=== PATIENT | female | born 1985 | race African-American/Black ===

== ENCOUNTER 2018-03-11 07:30 | Day surgery (SDC) | payer BC, OTHER ==
[2018-03-09 12:14] VITALS: BMI 32.5
[2018-03-11] MEDS ORDERED: LIDOCAINE HCL 2% (20ML MULTI-DOSE VIAL) NR ONE (08:22)
[2018-03-11] MEDS ORDERED: BUPIVACAINE HCL/PF 0.5% (5MG/ML) 10 ML VIAL ONE (08:23)
[2018-03-11] MEDS ORDERED: DEXAMETHASONE SOD PHOSPHATE 4 MG/1 ML VIAL ONE (08:24)
[2018-03-11 08:48] VITALS: TEMP 98.3
[2018-03-11] MEDS ORDERED: ONDANSETRON 4 MG/2 ML VIAL IVPUSH PRN ×2 (09:19→10:55)
[2018-03-11] MEDS ORDERED: ACETAMINOPHEN 500 MG TABLET (FP) PO PRN ×2 (09:19→10:55)
[2018-03-11] MEDS ORDERED: LACTATED RINGERS SOLUTION 1,000 ML IV SCH ×2 (09:30→10:55)
[2018-03-11] MEDS ORDERED: PROPOFOL 20 ML ONE ×2 (09:35)
[2018-03-11] MEDS ORDERED: ceFAZolin SODIUM 1 GM VIAL ONE ×2 (09:35→10:04)
[2018-03-11] MEDS ORDERED: MIDAZOLAM HCL 2 MG/2 ML SINGLE DOSE VIAL ONE ×2 (09:36)
--- NOTE | 2018-03-11 10:50 | OP ---
Operative Note - Note: Operative Date: 03/11/18 Pre-Operative Diagnosis: Subungual exostectomy right Operation: subungual exostectomy after nail avulsion Post-Operative Diagnosis: Same as Pre-op Surgeon: Monica Beckman Anesthesia: Local, MAC Operative Report Dictated: Yes
[2018-03-11 15:12] VITALS: BP 122/79; PULSE 92
--- NOTE | 2018-03-12 14:46 | OP ---
DATE OF OPERATION: 03/11/2018 SURGEON: Monica Beckman MD BLASTING WORKER: Stevie Becerra DPM PREPROCEDURE DIAGNOSIS: Right foot dorsal exostosis at right hallux. POSTPROCEDURE DIAGNOSIS: Right foot dorsal exostosis at right hallux. PROCEDURE: Total nail avulsion of the right hallux and exostectomy of dorsal exostosis at distal phalanx of the right hallux. PATHOLOGY: Right foot bone and soft tissue and hallucal nail fungal pathology. ANESTHESIA: MAC and local. ESTIMATED BLOOD LOSS: Minimal. HEMOSTASIS: Right pneumatic ankle tourniquet at 250 mmHg. INJECTIONS: A 1:1 mixture of 1% lidocaine plain and 0.5% Marcaine plain, 10 mL, preoperative; 9 mL of a mixture of dexamethasone and 0.5% Marcaine plain postoperative. PROCEDURE: The patient was both verbally and visually identified in the preoperative holding area. Informed consent was obtained and placed in the chart. All risks, benefits and complications were explained to the patient to her satisfaction. The patient was then brought to the operating room and placed on the operating table in the supine position. After adequate IV sedation, a local infiltration block utilizing 10 mL of a 1:1 mixture of 1% lidocaine plain and 0.5% Marcaine plain was administered to the right foot. At this time total right hallucal nail avulsion was performed utilizing spatula, [place] and hemostat. The right hallucal nail was passed from the operative field, then sent to Pathology. At this time the right foot was then prepped and draped in the usual aseptic fashion. The pneumatic right ankle tourniquet was inflated before the right hallucal nail was removed. Attention was then directed to the right hallux where the hallucal nail was removed. Nail bed was cleaned out with Betadine solutions and all subungual debris was removed. At this time the longitudinal incision was made at the dorsum aspect of the distal tip of the distal phalanx about at the mid foot portion about 2 cm in length of the right foot. The incision was deepened all the way to right distal phalanx and then utilizing sharp and blunt dissection the tip of the distal phalanx was exposed and utilizing a sagittal bone saw the exostosis at the tip of the distal phalanx especially medial portion of the distal phalanx was transected and removed from the operative field and sent to Pathology. Area was smoothened out with a rotating bur, then irrigated with normal saline solution and then incision was reapproximated with 3-0 nylon in simple suture fashion. Incision site then dressed with Betadine-soaked Adaptic and Telfa gauze and 4 x 4 gauze and Kerlix and Chaim bandage. Postoperative injection was given at this time. Then pneumatic right ankle tourniquet was deflated. Hyperemic response was noted of the digit of 1 through 5 of right foot. Patient tolerated the procedure and anesthesia well and left the operating room to the recovery room in good condition with the vital signs stable. Capillary filling time was less than 3 seconds at the right foot. MARLENY Dozier/[id number]
--- NOTE | 2018-03-16 09:09 | PATH ---
Surgical Pathology Report Patient Name: GINGER DIAZ [facility]. Rec. #: [id number] /Age/Gender: 1985 (Age: 32) / F Account: [id number] Location: [facility] SURGICAL Taken: 03/11/2018 Received: 03/11/2018 Reported: 03/16/2018 Physicians: Monica Beckman DPM Specimen(s) Received A: RIGHT TOENAIL FOR FUNGUS B: BONE SPUR RIGHT FOOT Clinical History Osteophyte Final Diagnosis A. TOE NAIL, RIGHT, EXCISION: ONYCHOMYCOSIS. PAS FUNGAL STAIN HIGHLIGHTS RARE FUNGAL FORMS. B. BONE, FOOT, RIGHT, SPUR, EXCISION: BONE WITH DEGENERATIVE CHANGES AND DENSE FIBROCONNECTIVE TISSUE. Electronically Signed Kimberley Horvath M.D. Gross Description A. Received in formalin labeled "fungus toenail right," are 2 paz-brown portions of unguis measuring 1.9 x 0.3 x 0.1 cm and 1.8 x 1.8 x 0.3 cm. [employer] sections are submitted in one cassette. B. Received in formalin labeled "bone spur right foot," is a 0.7 x 0.5 x 0.1 cm paz portion of bone. The specimen is bisected and entirely submitted in one cassette, following decalcification. /03/11/201803/11/2018
== END 2018-03-11 14:15 | disposition home or self-care (01) ==
LOC: JASU-SURG 07:30
PROVIDERS: ATTEND Podiatrist Foot Surgery
PROC: 0HDRXZZ Extraction of Toe Nail, External Approach (ICD-10-PCS; 2018-03-11)
PROC: 0QBQ0ZZ Excision of Right Toe Phalanx, Open Approach (ICD-10-PCS; principal; 2018-03-11 09:00)
DX: M25.70 Osteophyte, unspecified joint (principal)
CPT/HCPCS: 73630-TC-RT-FY; 84703; 94760

== ENCOUNTER 2020-07-20 07:40 | Inpatient (IN) | payer OTHER ==
[2020-07-20] MEDS ORDERED: PROMETHAZINE HCL 25 MG/1 ML VIAL IVPUSH ONE (08:13)
[2020-07-20] MEDS ORDERED: BUTORPHANOL TARTRATE 1 MG/ML VIAL IVPB ONE (08:13)
[2020-07-20] MEDS ORDERED: OXYTOCIN 30 UNITS in 0.9% NS 30 UNIT/500 ML INFUS.BAG IVPB SCH (08:15)
[2020-07-20 08:52] LABS: BASO % 0.6 % (0-2.0); EOS % 0.3 % (0-4.5); HEMATOCRIT 34.6 % (32.4-45.2); HEMOGLOBIN 11.5 GM/dL (10.7-15.3); MCH 26.3 pg (25.7-33.7); MCHC 33.1 g/dl (32.0-36.0); MEAN CELL VOLUME 79.4 fl (80-96); MEAN PLT VOLUME 8.1 fl (7.5-11.1); MONO % 6.9 % (3.8-10.2); NEUT % 72.2 % (42.8-82.8); PLATELET COUNT 269 K/MM3 (134-434); RBC 4.36 M/mm3 (3.60-5.2); RDW 13.4 % (11.6-15.6); WHITE BLOOD COUNT 9.6 K/mm3 (4.0-10.0)
[2020-07-20 08:55] VITALS: BMI 42.5
[2020-07-20] MEDS: DEXTROSE 5%-LACTATED RINGERS 1,000 ML IV SCH (09:00)
[2020-07-20 09:01] LABS: INR 0.95 (0.83-1.09); PROTHROMBIN TIME (PATIENT) 11.5 SEC (9.7-13.0)
[2020-07-20 09:03] LABS: ACTIVATED PTT 25.6 SECONDS (25.2-36.5)
[2020-07-20 09:19] LABS: POTASSIUM 4.1 mmol/L (3.5-5.1)
[2020-07-20 09:21] LABS: CALCIUM 8.8 mg/dL (8.5-10.1)
[2020-07-20 09:22] LABS: ALBUMIN 2.7 g/dl (3.4-5.0); BLOOD UREA NITROGEN 9.2 mg/dL (7-18)
[2020-07-20 09:24] LABS: URIC ACID 3.7 mg/dL (2.6-7.2)
[2020-07-20 09:25] LABS: CREATININE 0.6 mg/dL (0.55-1.3)
[2020-07-20 09:26] LABS: BILIRUBIN,TOTAL 0.3 mg/dL (0.2-1); TOT PROT 6.4 g/dl (6.4-8.2)
[2020-07-20] MEDS ORDERED: OXYTOCIN 30 UNITS in 0.9% NS 30 UNIT/500 ML INFUS.BAG IVPB ONE (09:28)
[2020-07-20 10:19] LABS: EPI CELLS 36 /uL (0-25.1); HYALINE CASTS 3 /uL (0-3.1); URINE APPEARANCE CLOUDY; URINE BACTERIA 2198 /uL (0-1359); URINE BILIRUBIN NEGATIVE (NEGATIVE); URINE COLOR YELLOW; URINE GLUCOSE (UA) NEGATIVE (NEGATIVE); URINE KETONE NEGATIVE (NEGATIVE); URINE LEUK ESTERASE 1+ (NEGATIVE); URINE NITRITE NEGATIVE (NEGATIVE); URINE PROTEIN NEGATIVE (NEGATIVE); URINE RBC 10 /uL (0-23.9); URINE UROBILINOGEN 0.2 mg/dL (0.2-1.0); URINE WBC 132 /uL (0-25.8)
[2020-07-20] MEDS ORDERED: DINOPROSTONE 10 MG VAGINAL SUPPOSITORY VG ONE (17:00)
[2020-07-20] MEDS ORDERED: ZOLPIDEM TARTRATE 5 MG TABLET PO PRN (23:02)
[2020-07-21] MEDS ORDERED: OXYTOCIN 30 UNITS in 0.9% NS 30 UNIT/500 ML INFUS.BAG IVPB ONE (04:40)
[2020-07-21] MEDS ORDERED: OXYTOCIN 30 UNITS in 0.9% NS 30 UNIT/500 ML INFUS.BAG IVPB SCH (04:50)
[2020-07-21] MEDS: DEXTROSE 5%-LACTATED RINGERS 1,000 ML IV SCH (10:00)
[2020-07-21] MEDS ORDERED: ONDANSETRON 4 MG/2 ML VIAL IVPUSH PRN (14:07)
[2020-07-21] MEDS ORDERED: LIDO 2%/EPI 1:200000 PRESRVFRE (20 ML SDVIAL) ONE (14:16)
[2020-07-21] MEDS ORDERED: PHENYLEPHRINE HCL 10 MG/1 ML SINGLE DOSE VIAL ONE (14:33)
[2020-07-21] MEDS ORDERED: OXYTOCIN 10 UNITS/ML VIAL ONE (14:37)
[2020-07-21] MEDS ORDERED: DEXAMETHASONE SOD PHOSPHATE 4 MG/1 ML VIAL ONE (14:40)
[2020-07-21] MEDS ORDERED: ONDANSETRON 4 MG/2 ML VIAL ONE (14:40)
[2020-07-21] MEDS ORDERED: KETOROLAC TROMETHAMINE 30 MG/1 ML VIAL ONE (14:40)
[2020-07-21] MEDS ORDERED: SENNOSIDES/DOCUSATE COMBO (SENNA PLUS) TABLET (UD) PO PRN (16:05)
[2020-07-21] MEDS ORDERED: METHYLERGONOVINE MALEATE 0.2 MG/1 ML AMP IM PRN (16:05)
[2020-07-21] MEDS ORDERED: oxyCODONE HCL 5 MG TABLET PO PRN ×2 (16:05)
[2020-07-21] MEDS ORDERED: IBUPROFEN 800 MG/8 ML IJ IVPB PRN (16:05)
[2020-07-21] MEDS ORDERED: SIMETHICONE 80 MG TAB.CHEW (FP) PO PRN (16:05)
[2020-07-21] MEDS ORDERED: OXYTOCIN 20 UNITS in 0.9% NS 20 UNIT/1,000 ML INFUS.BAG IV SCH (16:15)
[2020-07-21] MEDS ORDERED: OXYTOCIN 20 UNITS in 0.9% NS 20 UNIT/1,000 ML INFUS.BAG IV ONE (16:21)
[2020-07-22 08:30] LABS: BASO % 0.5 % (0-2.0); EOS % 0.1 % (0-4.5); HEMOGLOBIN 8.9 GM/dL (10.7-15.3); LYMPH % 16.3 % (8-40); MCH 26.3 pg (25.7-33.7); MCHC 33.1 g/dl (32.0-36.0); MEAN CELL VOLUME 79.6 fl (80-96); MEAN PLT VOLUME 8.4 fl (7.5-11.1); MONO % 8.4 % (3.8-10.2); NEUT % 74.7 % (42.8-82.8); PLATELET COUNT 228 K/MM3 (134-434); WHITE BLOOD COUNT 16.8 K/mm3 (4.0-10.0)
[2020-07-22] MEDS ORDERED: BISACODYL 10 MG SUPP.RECT RC PRN (16:05)
[2020-07-22] MEDS: IBUPROFEN 600 MG TABLET (FP) PO PRN (18:12)
[2020-07-22] MEDS: ACETAMINOPHEN 325 MG TABLET (FP) PO PRN (18:12)
[2020-07-23] MEDS: ACETAMINOPHEN 325 MG TABLET (FP) PO PRN (03:30)
[2020-07-23] MEDS: IBUPROFEN 600 MG TABLET (FP) PO PRN (03:31)
[2020-07-23 09:40] VITALS: BP 138/82; PULSE 91; TEMP 98.2
== END 2020-07-23 14:10 | disposition home or self-care (01) | DRG 788 ==
LOC: JLDR 07:40 → J3W 07-21 16:57
PROVIDERS: ADMIT Obstetrics & Gynecology; ATTEND Obstetrics & Gynecology
PROC: 3E0P7VZ Introduction of Hormone into Female Reproductive, Via Natural or Artificial Opening (ICD-10-PCS; 2020-07-20)
PROC: 10D00Z1 Extraction of Products of Conception, Low, Open Approach (ICD-10-PCS; principal; 2020-07-21)
DX: O62.1 Secondary uterine inertia (principal); O99.213 Obesity complicating pregnancy, third trimester; Z3A.40 40 weeks gestation of pregnancy; O69.81X0 Labor and delivery complicated by cord around neck, without compression, not applicable or unspecified; Z37.0 Single live birth
CPT/HCPCS: 36415; 80053; 81003; 84550; 85025; 85610; 85730; 86780; 86850; 86900; 86901; 88307-TC

== ENCOUNTER 2022-01-10 22:48 | Emergency (ER) | payer OTHER ==
[2022-01-10 23:19] VITALS: BMI 43.9
[2022-01-11] MEDS ORDERED: LACTATED RINGERS SOLUTION 500 ML IV ONE ×2 (00:30→01:30)
[2022-01-11] MEDS ORDERED: BETAMET ACET/BETAMET NA PH 30 MG/5 ML VIAL IM ONE (00:30)
[2022-01-11 03:02] LABS: RETICULOCYTES 1.95 % (0.5-1.5)
[2022-01-11 03:09] LABS: BASO % 0.2 % (0-2.0); EOS % 0.3 % (0-4.5); HEMATOCRIT 31.9 % (32.4-45.2); HEMOGLOBIN 10.9 GM/dL (10.7-15.3); LYMPH % 9.5 % (8-40); MEAN CELL VOLUME 76.5 fl (80-96); MEAN PLT VOLUME 8.3 fl (7.5-11.1); MONO % 9.5 % (3.8-10.2); NEUT % 80.5 % (42.8-82.8); PLATELET COUNT 205 10^3/uL (134-434); RBC 4.18 M/mm3 (3.60-5.2); RDW 13.1 % (11.6-15.6); WHITE BLOOD COUNT 13.7 K/mm3 (4.0-10.0)
[2022-01-11 03:11] VITALS: BP 131/73; PULSE 107; TEMP 98.4
[2022-01-11 03:21] LABS: CALCIUM 8.7 mg/dL (8.5-10.1)
[2022-01-11 03:22] LABS: ALBUMIN 2.5 g/dl (3.4-5.0); BLOOD UREA NITROGEN 7.7 mg/dL (7-18)
[2022-01-11 03:25] LABS: CREATININE 0.4 mg/dL (0.55-1.3); URIC ACID 3.8 mg/dL (2.6-7.2)
[2022-01-11 03:27] LABS: BILIRUBIN,TOTAL 0.2 mg/dL (0.2-1); TOT PROT 6.2 g/dl (6.4-8.2)
== END 2022-01-11 05:20 | disposition home or self-care (01) ==
LOC: JER 22:48
PROC: 3E0337Z Introduction of Electrolytic and Water Balance Substance into Peripheral Vein, Percutaneous Approach (ICD-10-PCS; principal; 2022-01-10)
PROC: 3E023GC Introduction of Other Therapeutic Substance into Muscle, Percutaneous Approach (ICD-10-PCS; principal; 2022-01-10)
DX: R42 Dizziness and giddiness (principal); R11.0 Nausea
CPT/HCPCS: 36415; 80053; 82977; 83010; 84550; 85025; 85032; 85045; 99284-25

== ENCOUNTER 2022-02-14 08:00 | Inpatient (IN) | payer OTHER ==
[2022-02-14 11:41] VITALS: BMI 44.1
[2022-02-14] MEDS ORDERED: SUCCINYLCHOLINE CHLORIDE 200 MG/10 ML SYRINGE ONE (13:29)
[2022-02-14] MEDS ORDERED: morphine SULFATE/PF 1 MG/2 ML (2cc Syringe - QUVA) ONE (13:29)
[2022-02-14] MEDS ORDERED: PROPOFOL 20 ML ONE (13:29)
[2022-02-14] MEDS ORDERED: ELECTROLYTE-148 SOLN 1,000 ML IV SCH (13:30)
[2022-02-14] MEDS ORDERED: ACETAMINOPHEN 325 MG TABLET (FP) PO PRN (15:06)
[2022-02-14] MEDS ORDERED: METHYLERGONOVINE MALEATE 0.2 MG/1 ML AMP IM PRN (15:06)
[2022-02-14] MEDS ORDERED: ONDANSETRON 4 MG/2 ML VIAL IVPUSH PRN (15:07)
[2022-02-14] MEDS ORDERED: morphine SULFATE/PF 1 MG/2 ML (2cc Syringe - QUVA) EP ONE (15:07)
[2022-02-14] MEDS ORDERED: OXYTOCIN 20 UNITS in 0.9% NS 20 UNIT/1,000 ML INFUS.BAG IV SCH (15:15)
[2022-02-14] MEDS ORDERED: IBUPROFEN 800 MG/8 ML IJ IVPB ONE (15:31)
[2022-02-14] MEDS: IBUPROFEN 800 MG/8 ML IJ IVPB PRN (15:35)
[2022-02-14] MEDS ORDERED: OXYTOCIN 20 UNITS in 0.9% NS 20 UNIT/1,000 ML INFUS.BAG IV ONE (15:35)
[2022-02-15] MEDS ORDERED: oxyCODONE HCL 5 MG TABLET PO PRN (03:06)
[2022-02-15] MEDS: IBUPROFEN 800 MG/8 ML IJ IVPB PRN (04:49)
[2022-02-15 08:22] LABS: BASO % 0.2 % (0-2.0); EOS % 0.1 % (0-4.5); HEMOGLOBIN 10.3 GM/dL (10.7-15.3); LYMPH % 10.7 % (8-40); MCH 24.9 pg (25.7-33.7); MCHC 33.2 g/dl (32.0-36.0); MEAN PLT VOLUME 7.8 fl (7.5-11.1); MONO % 7.3 % (3.8-10.2); NEUT % 81.7 % (42.8-82.8); PLATELET COUNT 192 10^3/uL (134-434); RBC 4.13 M/mm3 (3.60-5.2); RDW 14.3 % (11.6-15.6); WHITE BLOOD COUNT 11.5 K/mm3 (4.0-10.0)
[2022-02-15] MEDS: PRENATAL VITAMINS W/ FOLIC ACID TABLET (FP) PO SCH (10:40)
[2022-02-15] MEDS: IBUPROFEN 600 MG TABLET (FP) PO PRN (14:43)
[2022-02-15] MEDS ORDERED: BISACODYL 10 MG SUPP.RECT RC PRN (15:06)
[2022-02-15] MEDS: oxyCODONE HCL 5 MG TABLET PO PRN (21:39)
[2022-02-15] MEDS: SENNOSIDES/DOCUSATE COMBO (SENNA PLUS) TABLET (UD) PO PRN (21:39)
[2022-02-15] MEDS: SIMETHICONE 80 MG TAB.CHEW (FP) PO PRN (21:40)
[2022-02-16] MEDS: SIMETHICONE 80 MG TAB.CHEW (FP) PO PRN ×2 (05:24→12:04)
[2022-02-16] MEDS: oxyCODONE HCL 5 MG TABLET PO PRN ×2 (05:24→09:04)
[2022-02-16] MEDS: PRENATAL VITAMINS W/ FOLIC ACID TABLET (FP) PO SCH (09:06)
[2022-02-16] MEDS: IBUPROFEN 600 MG TABLET (FP) PO PRN (12:04)
[2022-02-16] MEDS: SENNOSIDES/DOCUSATE COMBO (SENNA PLUS) TABLET (UD) PO PRN (21:26)
[2022-02-17] MEDS: PRENATAL VITAMINS W/ FOLIC ACID TABLET (FP) PO SCH (10:04)
[2022-02-17 11:07] VITALS: BP 136/84; PULSE 81; TEMP 98.3
== END 2022-02-17 11:55 | disposition home or self-care (01) | DRG 788 ==
LOC: JLDR 11:10 → J3W 17:50
PROVIDERS: ADMIT Obstetrics & Gynecology; ATTEND Obstetrics & Gynecology
PROC: 10D00Z1 Extraction of Products of Conception, Low, Open Approach (ICD-10-PCS; principal; 2022-02-14)
DX: O16.4 Unspecified maternal hypertension, complicating childbirth (principal); O34.211 Maternal care for low transverse scar from previous cesarean delivery; Z3A.39 39 weeks gestation of pregnancy; Z37.0 Single live birth
CPT/HCPCS: 36415; 85025; 88307-TC